=== PATIENT | female | born 1985 | race Caucasian/White ===

== ENCOUNTER 2020-04-18 17:24 | Observation (INO) | payer OTHER ==
[~2020-04-18] VITALS: Ht 172.7 cm; Wt 124.7 kg
[2020-04-18] MEDS ORDERED: LACTATED RINGERS 1,000 ML IV SCH (18:15)
[2020-04-18 18:36] LABS: BASOPHILS % 0.7 % (0.0-2.0); EOSINOPHILS % 0.5 % (0.0-5.0); HEMATOCRIT. 32.5 % (36.0-48.0); HEMOGLOBIN. 11.1 g/dL (12.0-16.0); LYMPHOCYTES % 14.7 % (20.0-50.0); MEAN CORPUSCULAR HEMOGLOBIN 30.5 pg (28.0-32.0); MEAN CORPUSCULAR VOLUME 89.7 fL (81.0-99.0); MEAN PLATELET VOLUME 8.5 fl (7.4-10.4); MONOCYTES % 4.5 % (2.0-8.0); NEUTROPHILS % 79.6 % (40.0-76.0); PLATELET 326 x1000/uL (130-400); RED BLOOD CELL COUNT 3.62 mill/uL (4.2-5.4); RED CELL DISTRIBUTION WIDTH 13.5 % (11.6-14.6)
[2020-04-18 18:59] LABS: CLARITY URINE CLOUDY (CLEAR); COLOR URINE YELLOW (YELLOW); KETONES URINE NEGATIVE (NEGATIVE); LEUKOCYTE ESTERASE URINE 2+ (NEGATIVE); NITRITE URINE NEGATIVE (NEGATIVE); OCCULT BLOOD URINE NEGATIVE (NEGATIVE); PROTEIN URINE NEGATIVE (NEGATIVE); SPECIFIC GRAVITY URINE 1.027 (1.005-1.030)
[2020-04-18] MEDS ORDERED: PREN1TAB78 PO (19:54)
[2020-04-18] MEDS ORDERED: FERR325T6 PO (19:54)
[2020-04-18] MEDS ORDERED: CEFAZOLIN 2,000 MG in DEXT 5% WATER 100 ML IV SCH (21:00)
== END 2020-04-18 20:25 | disposition home or self-care (01) ==
LOC: 8 EST LDRP 17:24
PROVIDERS: ADMIT Obstetrics & Gynecology; ATTEND Obstetrics & Gynecology
DX: O26.892 Other specified pregnancy related conditions, second trimester (principal); R10.9 Unspecified abdominal pain; Z3A.25 25 weeks gestation of pregnancy
CPT/HCPCS: 36415; 59025; 76805; 76818; 81003; 85025; 96361; 96365; G0378; J0690; J7060; 96360; 99281

== ENCOUNTER 2020-05-25 19:03 | Observation (INO) | payer OTHER ==
[~2020-05-25] VITALS: Ht 170.2 cm; Wt 125.6 kg
[~2020-05-25 19:03] MED LIST: FERR325T6 PO; PREN1TAB78 PO
== END 2020-05-25 21:00 | disposition home or self-care (01) ==
LOC: 8 EST LDRP 19:03 → INTOOBSV 19:03
PROVIDERS: ADMIT Obstetrics & Gynecology; ATTEND Obstetrics & Gynecology
DX: O36.8130 Decreased fetal movements, third trimester, not applicable or unspecified (principal); Z3A.39 39 weeks gestation of pregnancy
CPT/HCPCS: 59025; G0378; 99281

== ENCOUNTER 2020-06-01 12:37 | Observation (INO) | payer OTHER | END 2020-06-01 13:45 | disposition home or self-care (01) | LOC: 8 EST LDRP 12:37 | PROVIDERS: ADMIT Obstetrics & Gynecology; ATTEND Obstetrics & Gynecology | DX: O62.9 Abnormality of forces of labor, unspecified (principal); Z3A.39 39 weeks gestation of pregnancy | CPT/HCPCS: 59025; G0378; 99281 ==

== ENCOUNTER 2023-07-23 09:25 | Emergency (ER) | payer MEDICAID, OTHER ==
[~2023-07-23] VITALS: Ht 165.1 cm; Wt 98.0 kg
[2023-07-23 10:08] LABS: BASOPHILS % 0.2 % (0.0-2.0); EOSINOPHILS % 1.1 % (0.0-5.0); LYMPHOCYTES % 21.8 % (20.0-50.0); MEAN CORPUSCULAR HEMOGLOBIN 29.1 pg (28.0-32.0); MEAN CORPUSCULAR HGB CONC 33.3 g/dL (31.0-37.0); MEAN CORPUSCULAR VOLUME 87.6 fL (81.0-99.0); MEAN PLATELET VOLUME 8.9 fl (7.4-10.4); MONOCYTES % 5.5 % (2.0-8.0); NEUTROPHILS % 71.4 % (40.0-76.0); PLATELET 386 x1000/uL (130-400); RED BLOOD CELL COUNT 3.42 mill/uL (4.2-5.4); RED CELL DISTRIBUTION WIDTH 16.2 % (11.6-14.6); WHITE BLOOD COUNT 11.4 x1000/uL (4.5-11.0)
[2023-07-23 10:18] LABS: INR 0.9; PROTHROMBIN TIME 9.7 sec (9.6-11.0)
[2023-07-23 10:24] LABS: ALANINE AMINOTRANSFERASE 8 IU/L (10-49); ASPARTATE AMINOTRANSFERASE 17 IU/L (<34); BILIRUBIN TOTAL 0.5 mg/dL (0.1-1.0); CALCIUM 8.7 mg/dL (8.7-10.4); CARBON DIOXIDE 24 mEq/L (21-32); CHLORIDE 103 mEq/L (98-107); CREATININE 0.4 mg/dL (0.6-1.0); GLUCOSE 91 mg/dL (70-105); POTASSIUM 3.6 mEq/L (3.5-5.1); PROTEIN TOTAL 6.9 g/dL (6.0-8.3); SODIUM 135 mEq/L (136-145); UREA NITROGEN BLOOD 11 mg/dL (9-23)
[2023-07-23] MEDS ORDERED: MAGNESIUM 4 G PREMIX 100 ML IV ONE (10:30)
[2023-07-23] MEDS ORDERED: MAGNESIUM 2 G PREMIX 50 ML IV ONE (10:30)
[2023-07-23] MEDS ORDERED: MAGNESIUM 4 G PREMIX 100 ML IV NR (10:45)
[2023-07-23] MEDS ORDERED: MAGNESIUM 2 G PREMIX 50 ML IV SCH ×2 (10:45→11:00)
[2023-07-23] MEDS: LABETALOL 5MG/ML SYR 20 MG/4 ML SYRINGE IV NR (10:50)
[2023-07-23 11:11] VITALS: TEMP 98.3
[2023-07-23 11:34] VITALS: BP 139/85; PULSE 95; RESP 18
== END 2023-07-23 11:43 | disposition short-term general hospital (02) ==
LOC: ER 09:25
DX: O14.93 Unspecified pre-eclampsia, third trimester (principal); Z3A.37 37 weeks gestation of pregnancy
CPT/HCPCS: 99291; 96374; 86592; 80053; 82962; 83735; 85025; 85610; 86850; 86900; 86901; 36415; 86705; 76815; J3490; J3475